=== PATIENT | male | born 1985 | race African-American/Black ===

== ENCOUNTER 2022-12-22 04:25 | Day surgery (SDC) | payer OTHER ==
[2022-12-21 08:45] VITALS: BMI 26.5
[~2022-12-22 04:25] MED LIST: DEXAMETHASONE SOD PHOSPHATE 10 MG/1 ML VIAL IM ONE; IOHEXOL 180 MG/1 ML ML IJ ONE; LIDOCAINE HCL 1% PRESERVATIVE FREE - 30ML VIAL IJ ONE
[2022-12-22] MEDS ORDERED: LIDOCAINE HCL/PF 1% SDV 5ML VIAL ONE ×2 (07:19→08:00)
[2022-12-22] MEDS ORDERED: DEXAMETHASONE SOD PHOSPHATE 10 MG/1 ML VIAL ONE (07:19)
[2022-12-22] MEDS ORDERED: DEXAMETHASONE SOD PHOSPHATE 10 MG/1 ML VIAL IM ONE (08:38)
[2022-12-22] MEDS ORDERED: LIDOCAINE HCL 1% PRESERVATIVE FREE - 30ML VIAL IJ ONE (08:38)
[2022-12-22] MEDS ORDERED: IOHEXOL 180 MG/1 ML ML IJ ONE (08:38)
[2022-12-22 09:01] VITALS: RESP 20
[2022-12-22 09:41] VITALS: BP 110/70; PULSE 70; TEMP 97
== END 2022-12-22 09:20 | disposition home or self-care (01) ==
LOC: JASU-SURG 04:25
PROVIDERS: ATTEND Pain Medicine Pain Medicine
PROC: 3E0R3BZ Introduction of Anesthetic Agent into Spinal Canal, Percutaneous Approach (ICD-10-PCS; 2022-12-22)
PROC: 3E0R33Z Introduction of Anti-inflammatory into Spinal Canal, Percutaneous Approach (ICD-10-PCS; principal; 2022-12-22 08:00)
DX: M48.061 Spinal stenosis, lumbar region without neurogenic claudication (principal); M54.16 Radiculopathy, lumbar region
CPT/HCPCS: 76000-TC-FY; J1100

== ENCOUNTER 2023-03-19 04:19 | Day surgery (SDC) | payer OTHER ==
[2023-03-17 13:54] VITALS: BMI 26.5
[2023-03-19 13:10] VITALS: RESP 18
[2023-03-19] MEDS ORDERED: DEXAMETHASONE SOD PHOSPHATE 10 MG/1 ML VIAL ONE (13:24)
[2023-03-19] MEDS ORDERED: DEXAMETHASONE SOD PHOSPHATE 10 MG/1 ML VIAL IVPUSH ONE (14:02)
[2023-03-19] MEDS ORDERED: IOHEXOL 180 MG/1 ML ML IT ONE (14:04)
[2023-03-19] MEDS ORDERED: LIDOCAINE HCL 1% PRESERVATIVE FREE - 30ML VIAL IJ ONE (14:04)
[2023-03-19] MEDS ORDERED: ACETAMINOPHEN 500 MG TABLET (FP) PO PRN (15:39)
[2023-03-19 17:38] VITALS: BP 109/72; PULSE 68; TEMP 97.8
== END 2023-03-19 14:45 | disposition home or self-care (01) ==
LOC: JASU-SURG 04:19
PROVIDERS: ATTEND Pain Medicine Pain Medicine
PROC: 3E0R3BZ Introduction of Anesthetic Agent into Spinal Canal, Percutaneous Approach (ICD-10-PCS; 2023-03-19)
PROC: 3E0R33Z Introduction of Anti-inflammatory into Spinal Canal, Percutaneous Approach (ICD-10-PCS; principal; 2023-03-19 14:15)
DX: M54.16 Radiculopathy, lumbar region (principal)
CPT/HCPCS: 76000-TC-FY; J1100

== ENCOUNTER 2023-06-08 04:54 | Day surgery (SDC) | payer OTHER ==
[2023-06-03 14:41] VITALS: BMI 26.5
[2023-06-08] MEDS ORDERED: LIDOCAINE HCL/PF 1% SDV 5ML VIAL ONE (07:26)
[2023-06-08] MEDS ORDERED: LIDOCAINE HCL 1% PRESERVATIVE FREE - 30ML VIAL IJ ONE (09:00)
[2023-06-08] MEDS ORDERED: IOHEXOL 180 MG/1 ML ML IJ ONE (09:00)
[2023-06-08] MEDS ORDERED: ACETAMINOPHEN 500 MG TABLET (FP) PO PRN (10:57)
[2023-06-08 11:00] VITALS: BP 110/62; PULSE 72; RESP 20; TEMP 97.8
== END 2023-06-08 09:35 | disposition home or self-care (01) ==
LOC: JASU-SURG 04:54
PROVIDERS: ATTEND Pain Medicine Pain Medicine
PROC: 3E0R3BZ Introduction of Anesthetic Agent into Spinal Canal, Percutaneous Approach (ICD-10-PCS; 2023-06-08)
PROC: 3E0R33Z Introduction of Anti-inflammatory into Spinal Canal, Percutaneous Approach (ICD-10-PCS; principal; 2023-06-08 08:45)
DX: M54.16 Radiculopathy, lumbar region (principal)
CPT/HCPCS: 76000-TC-FY